=== PATIENT | female | born 1965 | race Two or more races ===

== ENCOUNTER 2018-06-26 18:18 | Emergency (ER) | payer OTHER ==
[~2018-06-26] VITALS: Ht 170.2 cm; Wt 95.3 kg
== END 2018-06-26 20:21 | disposition home or self-care (01) ==
LOC: ER 18:18
DX: S90.451A Superficial foreign body, right great toe, initial encounter (principal); W45.8XXA Other foreign body or object entering through skin, initial encounter; Y93.89 Activity, other specified; Y92.89 Other specified places as the place of occurrence of the external cause; Y99.8 Other external cause status